=== PATIENT | female | born 1990 | race Caucasian/White ===

== ENCOUNTER → 2016-09-14 08:36 | Outpatient (CLI) | payer MEDICARE ==
[~2016-09-14 08:36] MED LIST: ATARAX 25 MG TA25 MG PO; LAMICTAL150 MG PO; OXYCODONE H5 MG/5 ML PO; PROZAC20 MG PO; ZANAFLEX4 MG PO; ZOFRAN ODT4 MG/UDTAB PO
--- NOTE | 2016-09-14 12:54 | NUR ---
Nutrition education for gastric sleeve: S: Pt has been overweight since ~12 years old. Pt has tried several diets to lose weight without any success. Pts mother states pt does not eat very much and blames all her weigh gain on medication for depression. Pt's diet recal reveals pt is eating quite a lot of food. Pt is drinking massive amounts of diet soda every day and getting very little exercise. Pt is very reluctant to answer my questions at first and looks to her mother to answer for her. However, pt started to answer my questions before the session was over; once she became comfortable with me. O: Ht: 5'2" Wt: 303# IBW: 110#+/-10% BMI: 55.4 Dx: Extreme obesity, HTN A: Pt and mother are in denidal about how much food pt is eating during the day. RDN reviewed pre/post op diet progression. Reviewed diet homework to start today and make a habit before surgery. Pt advised to eliminate all corbonated drinks now. Pt does not have a post-op weight loss goal at this time. Pt states she will talk with Dr. Washington about this later. P: Provided pt with printed diet information and RDN name and phone number. Pt's mother reports pt has been reading the diet booklet provided by Dr. Washington every day. Pt appears ready to make the lifestyle changes necessary to be successful with bariatric surgery. RDN will be available if needed. Thank you for the consult.
[2016-10-27 17:28] VITALS: BMI 54.1
== END | disposition home or self-care (01) ==
LOC: D.RAD 09-10 08:00
DX: Z01.818 Encounter for other preprocedural examination (principal)

== ENCOUNTER 2016-10-25 07:10 | Day surgery (SDC) | payer MEDICARE ==
[~2016-10-25] VITALS: Ht 177.8 cm; Wt 134.5 kg
[2016-10-25] MEDS ORDERED: LAMICTAL150 MG PO (08:05)
[2016-10-25] MEDS ORDERED: ZANAFLEX4 MG PO (08:06)
[2016-10-25] MEDS ORDERED: PROZAC20 MG PO (08:07)
[2016-10-25 08:18] VITALS: Ht 177.8 cm; Wt 134.5 kg
[2016-10-25 08:37] LABS: HCG URINE NEGATIVE (NEGATIVE)
[2016-10-25 08:52] LABS: BASOPHILS 0.2 % (0.0-2.0); EOSINOPHILS 1.1 % (0-7); HEMATOCRIT 37.9 % (36.0-48.0); HEMOGLOBIN 12.3 g/dL (12-16); IMMATURE GRANULOCYTES 0.1 % (0-5); LYMPHOCYTES 31.8 % (15-50); MCHC 32.5 g/dL (31.0-37.0); MCV 83.1 fL (80.0-100.0); MEAN PLATELET VOLUME 11.1 fL (7.4-10.4); MONOCYTES 12.7 % (2-11); NEUTROPHILS 54.1 % (40-80); PLATELET COUNT 284 10x3/uL (130-400); RBC 4.56 10x6/uL (4.00-5.40); RDW 13.4 % (11.5-14.5); WBC 8.1 10x3/uL (4.8-10.8)
--- NOTE | 2016-10-25 10:38 | OP ---
PATIENT NAME: YOVANY HOYT MEDICAL RECORD: [id number] :88 LOCATION:D.OPS ADMISSION DATE: SURGEON: LILIYA SAHNI MD DATE OF OPERATION: 10/25/2016 SURGEON: Liliya Sahni MD. PREOPERATIVE DIAGNOSES: 1. Morbid obesity. 2. Sliding paraesophageal hernia. POSTOPERATIVE DIAGNOSES: 1. Morbid obesity. 2. Sliding paraesophageal hernia. PROCEDURES PERFORMED: Esophagogastroduodenoscopy with biopsy. ANESTHESIA: Total intravenous anesthesia. COMPLICATIONS: None. SPECIMENS: 1. Duodenal biopsy. 2. Antral biopsy. 3. Gastric biopsy. 4. Gastroesophageal junction biopsy. COMPLICATIONS: None. ESTIMATED BLOOD LOSS: 10 cc. Case was contaminated. OPERATIVE COURSE: After consent was obtained, the patient was taken to the endoscopy suite. Hurricaine [place] was administered. A bite block was placed. A timeout was taken to confirm the correct patient and procedure, total intravenous anesthesia was given. The patient was placed in the left lateral decubitus position. The scope was inserted through the bite block, it was passed in the oropharynx under direct endoscopic vision, it was passed posterior to the epiglottis, it was advanced in the esophagus under direct endoscopic vision into the stomach. The stomach was insufflated. The scope was then passed to the distal stomach and antrum, it was passed through the pylorus. Once the duodenum was intubated, the duodenum appeared to be within normal limits. Multiple duodenal biopsies were taken. The scope was withdrawn back into the stomach. Multiple antral biopsies were then taken, several gastric body of the stomach. Biopsies were then taken. There appeared to be some minimal gastritis noted as well as some mild enteritis. The scope was retroflexed. There was a large hiatal hernia noted. The scope was then pulled back to the gastroesophageal junction again the hiatal hernia was noted. Multiple GE junction biopsies were taken. The scope was then passed back in the stomach, the stomach was desufflated. The esophagus was then examined upon withdrawal of the scope. There was no abnormalities in the esophagus noted. At this time, the scope was removed and procedure was terminated. The patient tolerated the procedure well. No complications occurred. At the end of the procedure, she was transferred to the recovery room in satisfactory condition. OPERATIVE REPORT [id number] YOVANY HOYT TRANSINT:[id number] Voice Confirmation ID: [id number] DOCUMENT ID: [id number] LILIYA SAHNI MD at 1038 CC: [id number] DICTATION DATE: 10/25/1650 PRICE LISTER: 10/25/16 1011 [address] [place] [id number] [place] [id number]
--- NOTE | 2016-10-25 11:18 | NUR ---
1118--IV DC'D, PT UP TO DRESS AT THIS TIME. SHEBA RN
--- NOTE | 2016-10-25 11:45 | NUR ---
1135--DISCHARGE INSTRUCTIONS GIVEN, PT VERBALIZES UNDERSTANDING. PT OFF UNIT VIA [place]SEANN. SHEBA BALDERRAMA
[2016-10-26] MEDS ORDERED: ATARAX 25 MG TA25 MG PO (13:10)
== END 2016-10-25 11:35 | disposition home or self-care (01) ==
LOC: D.OPS 07:10
PROVIDERS: Anesthesiology; Surgery
DX: K21.9 Gastro-esophageal reflux disease without esophagitis (principal); K44.9 Diaphragmatic hernia without obstruction or gangrene; E66.01 Morbid (severe) obesity due to excess calories; Z68.41 Body mass index [BMI] 40.0-44.9, adult

== ENCOUNTER 2016-10-27 05:19 | Inpatient (IN) | payer MEDICARE ==
[2016-10-27] VITALS (9 sets, daily range): BP systolic 128–150; BP diastolic 80–92; Ht 157.5 cm; Wt 134.1 kg
[~2016-10-27] VITALS: Ht 157.5 cm; Wt 134.1 kg
[~2016-10-27 05:19] MED LIST changes: -OXYCODONE H5 MG/5 ML PO; -ZOFRAN ODT4 MG/UDTAB PO
[2016-10-27 07:06] LABS: HCG URINE NEGATIVE (NEGATIVE)
--- NOTE | 2016-10-27 09:54 | NUR ---
UNABLE TO REACH FAMILY FOR UPDATE
--- NOTE | 2016-10-27 15:19 | OP ---
PATIENT NAME: YOVANY HOYT MEDICAL RECORD: [id number] :88 LOCATION:D.MS [place] ADMISSION DATE:10/27/16 SURGEON: LILIYA SAHNI MD DATE OF OPERATION: 10/27/2016 SURGEON: Liliya Sahni MD PREOPERATIVE DIAGNOSES: 1. Severe morbid obesity due to excess calories. 2. Type 3 paraesophageal hernia. 3. Seizure disorder. 4. Hypertension. POSTOPERATIVE DIAGNOSES: 1. Severe morbid obesity due to excess calories. 2. Type 3 paraesophageal hernia. 3. Seizure disorder. 4. Hypertension. PROCEDURE PERFORMED: 1. Laparoscopic paraesophageal hernia repair. 2. Laparoscopic vertical sleeve gastrectomy. ANESTHESIA: General. COMPLICATIONS: None. SPECIMENS: Partial gastrectomy. Case was clean contaminated. ESTIMATED BLOOD LOSS: 50 cc. COMPLICATIONS: None. OPERATIVE COURSE: After consent was obtained, the patient was taken to the operating room and placed in supine position on the operating table. Next, general anesthesia was given via endotracheal intubation. Thereafter, a timeout was performed to confirm the correct patient and procedure. Local anesthetic was injected just above the umbilicus. A stab incision was made with an 11-blade scalpel. Using a 12-mm bladeless optical trocar, the abdomen was entered under direct laparoscopic vision. Adequate pneumoperitoneum was achieved. The abdominal cavity was inspected. No evidence of bowel injury. No evidence of bleeding. The patient was then placed in the steep reverse Trendelenburg position. All remaining trocars were then placed after administration of local anesthetic and under direct laparoscopic vision, a 12-mm and 5-mm trocar in the right lateral quadrant. Two 5-mm trocars in the left lateral quadrant. A subxiphoid incision was made and a Aida liver retractor was placed. The left lobe of liver was elevated exposing the gastroesophageal junction, immediately noticed was a large paraesophageal hernia. At this time, the proximal portion of the stomach and esophagus were reduced within the hiatal hernia. The gastrohepatic ligament was opened with the Harmonic scalpel and dissection continued on the gastrohepatic ligament up to the right crura. The right crura was skeletonized as dissection continued to entered to the esophagus and along the crura. Next, the pylorus was identified. OPERATIVE REPORT [id number] YOVANY HOYT In approximately 6-8 cm proximal to the pylorus, the short gastrics were taken along the greater curvature of the stomach with the Harmonic scalpel. The greater curvature was completely mobilized ____ short gastrics to the level of the left crura. The left crura was skeletonized and full dissection of the paraesophageal hernia was completed all on the left crura anteriorly and posteriorly. Next the mediastinum and hernia sac were dissected, approximately 3 cm of intraabdominal esophagus were obtained. The diaphragmatic hernia was then closed with a 0 polypropylene Stratafix suture in a continuous fashion. Once this was complete, the 40-[place] ViSiGi bougie was placed under direct laparoscopic vision. The 40-[place] Islander bougie was passed through the stomach along the lesser curvature and into the pylorus at which it was placed to suction. Next, the vertical sleeve gastrectomy was performed using the [employer] powered linear cutting stapler with gold load. The stapler was fired along the bougie, which was creating the sleeve gastrectomy approximately 7 firings of the stapler were used. Next, the gastrectomy specimen was placed in the left lateral quadrant. The suture line was imbricated with a 2-0 Stratafix suture. At this time, a bowel clamp was placed across the first portion of duodenum. The ViSiGi device was used to insufflate the stomach. The upper abdomen was filled with water. A leak test, which was performed, which showed no evidence of leak. At this time, all remaining irrigation of the abdomen was suctioned. The stomach was decompressed with suction. Once ViSiGi devices was all suctioned, It was removed without complication. At this time, the entire abdominal cavity was irrigated and suctioned. There is no evidence of bowel injury. No evidence of bleeding. The partial gastrectomy specimen was grasped with a tenaculum and it was removed through the 12-mm trocar site and sent for permanent pathology. At this time, both 12-mm trocars were removed. They were closed with an 0 Vicryl suture and a Francisco-Tyler suture passer under direct laparoscopic vision. Again at this time, the abdomen was examined and irrigated and suctioned. There is no evidence of bowel injury. No evidence of bleeding. At this time, the Aida liver retractor was removed under direct laparoscopic vision. All the remaining instruments were removed. The abdomen was desufflated. Remaining trocars were then removed. Skin was closed with 4-0 Monocryl, Mastisol and Steri-Strips. At the end of the case, all needle and instrument counts were correct. No complications occurred. The patient was extubated and transferred to the PACU in stable condition. TRANSINT:[id number] Voice Confirmation ID: [id number] DOCUMENT ID: [id number] LILIYA SAHNI MD at 1519 CC: [id number] DICTATION DATE: 10/27/16 1056 CORNER TRIMMER OPERATOR: 10/27/16 1440 ADM IN [place] [id number] [place] [id number]
--- NOTE | 2016-10-27 19:35 | NUR ---
RECIEVED SHIFT REPORT. PT IS LYING IN BED. ALERT AND ORIENTED AND ABLE TO VERBALIZE NEEDS. IV IS PATENT AND FLUIDS ARE RUNNING PER ORDER. PT IS AMBULATORY WITH ASSISTANCE BUT IS ABLE TO TURN SELF IN BED FOR COMFORT AND SKIN CARE. SCD'S ON. PT STATES PAIN IS 2/10 WITH ESTIMATION MANAGER PUMP. NO NEEDS ARE VERBALIZED AT THIS TIME. WILL CONTINUE TO MONITOR. SIDE RAILS ARE UP X 2. BED IS IN LOWEST POSITION. CALL LIGHT IS WITHIN REACH.
--- NOTE | 2016-10-27 20:50 | NUR ---
SHIFT ASSESSMENT COMPLETED. NIGHT MEDS GIVEN WITH NO PROBLEMS. NO NEEDS ARE VOICED. WILL MONITOR. SIDE RAILS X 2. BED LOW. CALL LIGHT IN REACH.
[2016-10-28] VITALS: BP 131/80
[2016-10-28 04:00] VITALS: BP 142/85
--- NOTE | 2016-10-28 08:05 | NUR ---
AWAKE AND ALERT. ORIENTED X3. C/O SOME NAUSEA AT THIS TIME. LUNGS ARE CLEAR BILATERALLY BUT DIMINISHED THROUGHOUT, NO COUGH NOTED. SKIN IS INTACT WITHOUT REDNESS EXCEPT 6 LAP SITES WHICH ARE DRY AND INTACT. IV TO RIGHT HAND IS PATENT WITHOUT REDNESS AT INSERTION SITE. SCD'S IN PLACE. BOWEL SOUNDS ARE HYPOACTIVE AT THIS TIME. DENIES NEEDS. REPORTS UP TO BR SEVERAL TIMES WITH LARGE VOLUMN OF URINE. DENIES NEEDS.
--- NOTE | 2016-10-28 09:30 | NUR ---
OFF UNIT VIA WC FOR TEST.
[2016-10-28 09:56] LABS: BASOPHILS 0.2 % (0.0-2.0); EOSINOPHILS 0.2 % (0-7); HEMATOCRIT 34.9 % (36.0-48.0); HEMOGLOBIN 11.2 g/dL (12-16); IMMATURE GRANULOCYTES 0.6 % (0-5); LYMPHOCYTES 11.7 % (15-50); MCH 26.6 pg (26.0-34.0); MCHC 32.1 g/dL (31.0-37.0); MCV 82.9 fL (80.0-100.0); MEAN PLATELET VOLUME 11.6 fL (7.4-10.4); MONOCYTES 9.9 % (2-11); NEUTROPHILS 77.4 % (40-80); PLATELET COUNT 253 10x3/uL (130-400); RBC 4.21 10x6/uL (4.00-5.40); RDW 13.4 % (11.5-14.5); WBC 13.3 10x3/uL (4.8-10.8)
[2016-10-28 10:05] LABS: CALC OSMOLALITY 273 mosm/kg (275-300); CALCIUM 8.4 mg/dL (8.5-10.1); CARBON DIOXIDE 23.7 mmol/L (21.0-32.0); CHLORIDE - SERUM 102 mmol/L (98-107); CREATININE - SERUM 0.7 mg/dL (0.6-1.3); GLUCOSE 114 mg/dL (74-106); MAGNESIUM - SERUM 1.5 mg/dL (1.8-2.4); POTASSIUM - SERUM 4.2 mmol/L (3.5-5.1); SODIUM 137 mmol/L (136-145); UREA NITROGEN 9 mg/dL (7-18); eGFR NON AFRICAN AMERICAN > 90 mL/min (90-120)
--- NOTE | 2016-10-28 10:56 | NUR ---
SITTING UP IN CHAIR AT BEDSIDE AT THIS TIME. FAMILY IN ROOM. AMBULATED 250 FEET WITH PT.
[2016-10-28 12:22] VITALS: BP 123/71
[2016-10-28] MEDS ORDERED: OXYCODONE H5 MG/5 ML PO (12:42)
[2016-10-28] MEDS ORDERED: ZOFRAN ODT4 MG/UDTAB PO (12:43)
--- NOTE | 2016-10-28 14:21 | NUR ---
Nutrition consult: Reviewed post-gastric sleeve diet with pt and mother. Asked pt to tell me the progression of the diet. Pt able to answer questions correctly. Provided pt with printed "Rules of the Road" handout. Questions answered. Provided pt with 3 - 1 ounce portion cups. RDN will ba available for questions if needed. Thank you for the consult.
--- NOTE | 2016-10-28 14:30 | NUR ---
DISCHARGED TO HOME WITH FAMILY AMBULATORY. DISCHARGE INSTRUCTIONS GIVEN BOTH VERBALLY AND WRITTEN. ALL QUESTIONS ANSWERED. PATIENT AND MOTHER VERBALIZED UNDERSTANDING OF SAME. NEEDED PRESCRIPTIONS GIVEN TO PATIENT. IV TO LEFT HAND D/C WITH CATHETHER INTACT.
--- NOTE | 2016-11-13 09:18 | DS ---
PATIENT:YOVANY HOYT :86 MEDICAL RECORD: [id number] DISCHARGE SUMMARY ADMISSION DATE: 10/27/16 DISCHARGE DATE: 10/28/16 DATE OF ADMISSION: 10/27/2016. DATE OF DISCHARGE: 10/28/2016 ADMITTING PHYSICIAN: Liliya Sahni. ADMITTING DIAGNOSES: Morbid obesity and paraesophageal hernia. DISCHARGE DIAGNOSES: Status post laparoscopic vertical sleeve gastrectomy and diaphragmatic hernia repair, morbid obesity, epilepsy. HOSPITAL COURSE: The patient was admitted to the hospital for an elective vertical sleeve gastrectomy as well as diaphragmatic hernia repair. The patient tolerated procedure well. Postoperatively, she was transferred to the floor in stable condition. She was started on a bariatric phase 1 clear liquid diet. The following morning, a swallow study was performed, which was within normal limits. She was started on a bariatric phase 2, diet. At the time of discharge she was ambulating independently. Pain was well controlled on oral pain medicine. She was voiding without difficulty. DISCHARGE DIET: Bariatric phase 2, diet for 2 weeks. ACTIVITY: As tolerated, walking encouraged, stairs allowed. No strenuous activity for 2 weeks. WOUND CARE: The patient may shower, soap and water to the wound daily. FOLLOWUP: Follow up with Dr. Sahni in 2 weeks. DISCHARGE MEDICATIONS: Please see electronic medical record for full list of discharge medications. TRANSINT:[id number] Voice Confirmation ID: [id number] DOCUMENT ID: [id number] LILIYA SAHNI MD at 0918 CC: [id number] DICTATION DATE: 11/12/16 1358 VALVE ASSEMBLER: 11/13/16 0148 DIS IN 10/28/[address] [id number]
--- NOTE | 2016-12-03 09:40 | OP ---
PATIENT NAME: YOVANY HOYT MEDICAL RECORD: [id number] :86 LOCATION:D.MS [place] ADMISSION DATE:10/27/16 SURGEON: IRINEO CHANDLER MD DATE OF OPERATION: 10/27/2016 Assistance Note I assisted Dr. Sahni with the repair of esophageal hiatal hernia repair as well with the laparoscopic sleeve gastric resection for morbid obesity. I entered operative theater after the trocars had been inserted. My involvement in the operation included some use of the Harmonic scalpel around the greater curve of the stomach. Some dissection in the hilum of the spleen with the Harmonic scalpel. Some dissection along the left vinay. Retraction of the esophagus. Some retraction of the suture material. Manipulation of tissues. Retraction of the stomach. Cautery of some bleeding areas in the hilum of the spleen with the Harmonic scalpel. Assistance with the oversewing of the staple line with the suture. Irrigation and aspiration. Running some of the camera. Also, closure of the skin that some of the trocar sites. I was the assistant news director for this operative procedure. TRANSINT:[id number] Voice Confirmation ID: [id number] DOCUMENT ID: [id number] IRINEO CHANDLER MD at 0940 CC: LILIYA SAHNI MD [id number] DICTATION DATE: 10/27/16 1058 EAP CLINICIAN: 10/27/16 1340 DIS IN 10/28/16 [facility] [address] [place] [id number]
== END 2016-10-28 14:30 | disposition home or self-care (01) | DRG 621 ==
LOC: D.SDCHOLD 05:19 → D.MS 05:19 → D.SDCHOLD 08:00 → D.MS 10:59
PROVIDERS: ADMIT Surgery
PROC: 0BQR4ZZ (ICD-10-PCS; 2016-10-27)
PROC: 0DB64Z3 Excision of Stomach, Percutaneous Endoscopic Approach, Vertical (ICD-10-PCS; principal; 2016-10-27 08:00)
PROC: 0BQS4ZZ (ICD-10-PCS; 2016-10-27 08:00)
DX: E66.01 Morbid (severe) obesity due to excess calories (principal); K44.9 Diaphragmatic hernia without obstruction or gangrene; Z68.43 Body mass index [BMI] 50.0-59.9, adult; G40.909 Epilepsy, unspecified, not intractable, without status epilepticus; I10 Essential (primary) hypertension

== ENCOUNTER 2016-12-10 06:51 | Emergency (ER) | payer MEDICARE ==
[2016-10-27 17:28] VITALS: BMI 54.1
[~2016-12-10 06:51] MED LIST changes: +OXYCODONE H5 MG/5 ML PO; +ZOFRAN ODT4 MG/UDTAB PO
[2016-12-10 08:04] LABS: BASOPHILS 0.2 % (0.0-2.0); EOSINOPHILS 2.8 % (0-7); HEMATOCRIT 37.8 % (36.0-48.0); HEMOGLOBIN 12.2 g/dL (12-16); IMMATURE GRANULOCYTES 0.2 % (0-5); LYMPHOCYTES 27.2 % (15-50); MCH 27.2 pg (26.0-34.0); MCHC 32.3 g/dL (31.0-37.0); MCV 84.4 fL (80.0-100.0); MEAN PLATELET VOLUME 12.1 fL (7.4-10.4); MONOCYTES 10.9 % (2-11); NEUTROPHILS 58.7 % (40-80); PLATELET COUNT 271 10x3/uL (130-400); RBC 4.48 10x6/uL (4.00-5.40); RDW 14.1 % (11.5-14.5); WBC 8.5 10x3/uL (4.8-10.8)
[2016-12-10 08:15] LABS: HCG SERUM NEGATIVE (NEGATIVE)
[2016-12-10 08:15] LABS: APPEARANCE TURBID (CLEAR); COLOR DK YELLOW (YELLOW)
[2016-12-10 08:16] LABS: BACTERIA MODERATE /hpf (NONE SEEN); BILIRUBIN NEGATIVE (NEGATIVE); GLUCOSE NEGATIVE (NEGATIVE); KETONE SMALL mg/dL (NEGATIVE); LEUKOCYTE ESTERASE NEGATIVE (NEGATIVE); NITRITE NEGATIVE (NEGATIVE); PROTEIN 1+ mg/dL (NEGATIVE); SPECIFIC GRAVITY 1.025 (1.005-1.020); UROBILINOGEN NORMAL (NORMAL); WHITE CELLS - URINE 0-5 /hpf (0-5)
[2016-12-10 08:18] LABS: ALBUMIN 3.3 g/dL (3.4-5.0); ALKALINE PHOSPHATASE 82 U/L (46-116); ALT (SGPT) 33 U/L (10-68); BILIRUBIN - TOTAL 0.39 mg/dL (0.2-1.3); CALC OSMOLALITY 276 mosm/kg (275-300); CALCIUM 8.8 mg/dL (8.5-10.1); CARBON DIOXIDE 24.8 mmol/L (21.0-32.0); CHLORIDE - SERUM 104 mmol/L (98-107); CREATININE - SERUM 0.8 mg/dL (0.6-1.3); GLUCOSE 93 mg/dL (74-106); POTASSIUM - SERUM 3.2 mmol/L (3.5-5.1); PROTEIN - SERUM 7.2 g/dL (6.4-8.2); SODIUM 139 mmol/L (136-145); UREA NITROGEN 11 mg/dL (7-18); eGFR NON AFRICAN AMERICAN 90 mL/min (90-120)
[2016-12-10 08:19] LABS: MUCUS >1+ /lpf (NONE SEEN); RED CELLS - URINE >50 /hpf (0-5)
== END 2016-12-10 10:00 | disposition home or self-care (01) ==
LOC: D.ER 06:51
PROVIDERS: Emergency Medicine
DX: R33.9 Retention of urine, unspecified (principal); F17.200 Nicotine dependence, unspecified, uncomplicated

== ENCOUNTER → 2017-02-04 10:36 | Outpatient (CLI) | payer MEDICARE ==
[2016-10-27 17:28] VITALS: BMI 54.1
[2017-02-04 10:55] LABS: BASOPHILS 0.5 % (0-2); HEMATOCRIT 38.7 % (36.0-48.0); HEMOGLOBIN 12.6 g/dL (12-16); IMMATURE GRANULOCYTES 0.1 % (0-5); LYMPHOCYTES 41.3 % (15-50); MCH 27.6 pg (26.0-34.0); MCHC 32.6 g/dL (31.0-37.0); MCV 84.9 fL (80.0-100.0); MEAN PLATELET VOLUME 11.4 fL (7.4-10.4); MONOCYTES 10.4 % (2-11); NEUTROPHILS 45.7 % (40-80); PLATELET COUNT 300 10x3/uL (130-400); RBC 4.56 10x6/uL (4.00-5.40); RDW 13.9 % (11.5-14.5); WBC 7.4 10x3/uL (4.8-10.8)
[2017-02-04 11:31] LABS: CREATININE - SERUM 0.7 mg/dL (0.6-1.3)
== END | disposition home or self-care (01) ==
LOC: D.LABREF 10:36
PROVIDERS: Surgery
DX: Z00.00 Encounter for general adult medical examination without abnormal findings (principal)

== ENCOUNTER → 2017-02-16 21:11 | Outpatient (CLI) | payer MEDICARE ==
[2016-10-27 17:28] VITALS: BMI 54.1
== END | disposition home or self-care (01) ==
LOC: D.LABREF 21:11
DX: R11.0 Nausea (principal)

== ENCOUNTER → 2017-05-10 14:00 | Outpatient (CLI) | payer MEDICARE ==
[2016-10-27 17:28] VITALS: BMI 54.1
[2017-05-10 14:33] LABS: BASOPHILS 0.2 % (0-2); EOSINOPHILS 1.3 % (0-7); HEMATOCRIT 38.4 % (36.0-48.0); HEMOGLOBIN 12.5 g/dL (12-16); IMMATURE GRANULOCYTES 0.2 % (0-5); LYMPHOCYTES 28.6 % (15-50); MCHC 32.6 g/dL (31.0-37.0); MCV 86.1 fL (80.0-100.0); MEAN PLATELET VOLUME 11.2 fL (7.4-10.4); NEUTROPHILS 60.7 % (40-80); PLATELET COUNT 317 10x3/uL (130-400); RBC 4.46 10x6/uL (4.00-5.40); WBC 10.1 10x3/uL (4.8-10.8)
[2017-05-10 15:01] LABS: ALBUMIN 3.4 g/dL (3.4-5.0); ALKALINE PHOSPHATASE 92 U/L (46-116); ALT (SGPT) 21 U/L (10-68); CALC OSMOLALITY 278 mosm/kg (275-300); CALCIUM 8.9 mg/dL (8.5-10.1); CARBON DIOXIDE 25.9 mmol/L (21.0-32.0); CHLORIDE - SERUM 104 mmol/L (98-107); CHOLESTEROL, TOTAL 173 mg/dL (0-200); CREATININE - SERUM 0.8 mg/dL (0.6-1.3); GLUCOSE 84 mg/dL (74-106); HDL CHOLESTEROL 58 mg/dL (32-96); LDL CHOLESTEROL 98 mg/dL (0-100); LDL-HDL RATIO 1.7 ratio (1.5-3.5); POTASSIUM - SERUM 4.1 mmol/L (3.5-5.1); SODIUM 141 mmol/L (136-145); TRIGLYCERIDE 89 mg/dL (30-200); UREA NITROGEN 11 mg/dL (7-18); eGFR NON AFRICAN AMERICAN 90 mL/min (90-120)
[2017-05-11 10:17] LABS: VITAMIN D 25 HYDROXY 33.3 ng/mL (30.0-100.0)
== END | disposition home or self-care (01) ==
LOC: D.LAB 14:00
PROVIDERS: Surgery
DX: Z00.00 Encounter for general adult medical examination without abnormal findings (principal); I10 Essential (primary) hypertension; M79.7 Fibromyalgia; J98.11 Atelectasis

== ENCOUNTER → 2017-05-20 17:23 | Outpatient (CLI) | payer MEDICARE ==
[2016-10-27 17:28] VITALS: BMI 54.1
[2017-05-20 20:41] LABS: % SATURATION 17 % (15-55); IRON 58 ug/dl (35-150); TOTAL IRON BIND CAPACITY 323 ug/dl (260-445); UNSAT IRON BIND CAPACITY 265 ug/dl (150-375)
[2017-05-23 13:11] LABS: FOLATE (FOLIC ACID) - SERUM >20.0 ng/mL (>3.0)
== END | disposition home or self-care (01) ==
LOC: D.LABREF 17:23
PROVIDERS: Family Medicine
DX: R53.83 Other fatigue (principal)